=== PATIENT | female | born 1980 | race Caucasian/White ===

== ENCOUNTER 2017-09-13 17:46 | Emergency (ER) | payer SELFPAY ==
[~2017-09-13] VITALS: Ht 170.2 cm; Wt 82.7 kg
[2017-09-13 17:52] VITALS: BP 118/67
[2017-09-13 19:30] VITALS: PULSE 90
== END 2017-09-13 19:30 | disposition home or self-care (01) ==
LOC: COL.ER 17:46
DX: J36 Peritonsillar abscess (principal); F17.210 Nicotine dependence, cigarettes, uncomplicated; Z88.0 Allergy status to penicillin